=== PATIENT | female | born 1970 | race Caucasian/White ===

== ENCOUNTER 2021-01-01 03:55 | Emergency (ER) | payer BC ==
[~2021-01-01] VITALS: Ht 170.2 cm; Wt 90.9 kg
[~2021-01-01 03:55] MED LIST: CIPROFLOXACN500 MG PO; LOPRESSOR 550 MG/TAB PO; SEPTRA DS1 TAB PO; VITAMIN D5000 UNIT OR
[2021-01-01] MEDS ORDERED: METOPROLOL SUCC50 MG PO (04:25)
[2021-01-01] MEDS ORDERED: BP MED (04:26)
[2021-01-01] MEDS ORDERED: TRAZODONE50 MG PO (04:26)
[2021-01-01 04:41] LABS: HEMATOCRIT 41.4 % (37.0-47.0); HEMOGLOBIN 13.4 g/dl (12.0-16.0); IMMATURE GRANULOCYTES 0.4 % (0.0-5.0); MEAN CELL VOLUME 92.8 fL CALC (80.0-100.0); MEAN CORPUSCULAR HGB CONC 32.4 g/dL CAL (32.0-36.0); NEUT# 5.44 thou/uL (2.00-7.15); RED BLOOD COUNT 4.46 mill/uL (4.20-5.60); RED CELL DISTRI WIDTH 12.9 % (11.5-15.5); URINE BILIRUBIN - DIPSTICK NEGATIVE (NEGATIVE); URINE BLOOD DIPSTICK TRACE-INTACT (NEGATIVE); URINE COLOR YELLOW; URINE GLUCOSE - DIPSTICK NEGATIVE (NEGATIVE); URINE KETONE NEGATIVE (NEGATIVE); URINE LEUK ESTERASE NEGATIVE (NEGATIVE); URINE NITRITE - DIPSTICK NEGATIVE (Negative); URINE PROTEIN - DIPSTICK NEGATIVE (NEG-TRACE); URINE SPECIFIC GRAVITY 1.025; URINE UROBILINOGEN - DIPSTICK 0.2 E.U./dL (0.2)
[2021-01-01 04:56] LABS: ALBUMIN 4.5 g/dL (3.2-5.0); ALKALINE PHOSPHATASE 84 u/l (38-126); AMYLASE 70 u/l (30-110); ANION GAP 11 (6-22 (CALC)); BILIRUBIN, TOTAL 0.5 mg/dL (0.0-1.4); BUN 22 mg/dL (7-17); BUN/CREATININE RATIO 32 (12-20 (CALC)); CARBON DIOXIDE 30 mmol/l (22-30); CHLORIDE 102 mmol/l (95-108); CREATININE 0.7 mg/dL (0.5-1.0); GFR > 60 ML/MIN (>=60 (CALC)); GFR FOR AFR.AMER. > 60 ML/MIN (>=60 (CALC)); LIPASE 110 u/l (23-300); SGOT/AST 34 u/l (14-36); SODIUM 139 mmol/l (137-146); TOTAL PROTEIN 7.7 g/dL (6.3-8.2)
[2021-01-01 05:07] LABS: MYOGLOBIN 18 ng/mL (0 - 62)
[2021-01-01] MEDS ORDERED: PEPCID20 MG PO (07:04)
[2021-01-01 07:11] VITALS: BP 144/84
== END 2021-01-01 07:18 | disposition home or self-care (01) | DRG 392 ==
LOC: ED 03:55
PROVIDERS: Family Medicine
DX: K29.70 Gastritis, unspecified, without bleeding (principal); Z85.3 Personal history of malignant neoplasm of breast

== ENCOUNTER 2022-07-02 12:04 | Emergency (ER) | payer BC ==
[~2022-07-02] VITALS: Ht 167.6 cm; Wt 96.3 kg
[~2022-07-02 12:04] MED LIST changes: +BP MED; +METOPROLOL SUCC50 MG PO; +PEPCID20 MG PO; +TRAZODONE50 MG PO
[2022-07-02 12:31] VITALS: BP 112/75
[2022-07-02] MEDS ORDERED: FLEXERIL5 M1 PO (13:45)
[2022-07-02] MEDS ORDERED: NAPROXEN500 MG PO (13:45)
[2022-07-02 14:18] VITALS: BP 112/75
== END 2022-07-02 14:20 | disposition home or self-care (01) | DRG 563 ==
LOC: ED 12:04
DX: S39.012A Strain of muscle, fascia and tendon of lower back, initial encounter (principal); M51.36 Other intervertebral disc degeneration, lumbar region; M41.9 Scoliosis, unspecified; X50.3XXA Overexertion from repetitive movements, initial encounter; Y93.01 Activity, walking, marching and hiking

== ENCOUNTER 2023-12-10 17:59 | Emergency (ER) | payer BC ==
[~2023-12-10] VITALS: Ht 167.6 cm; Wt 95.2 kg
[2023-12-10] VITALS (8 sets, daily range): BP systolic 116–136; BP diastolic 74–87
[~2023-12-10 17:59] MED LIST changes: +FLEXERIL5 M1 PO; +NAPROXEN500 MG PO
[2023-12-10] MEDS ORDERED: TRAZODONE100 MG PO (19:10)
[2023-12-10] MEDS ORDERED: METFORMIN500 M2 PO (19:10)
[2023-12-10] MEDS ORDERED: ATORVASTATIN CA10 MG PO (19:12)
[2023-12-10] MEDS ORDERED: METOPROLOL100 M1 PO (19:13)
[2023-12-10] MEDS ORDERED: ORPHENADRINE CITRATE 30 MG/ML AMP IM ONE (19:25)
[2023-12-10] MEDS ORDERED: predniSONE 20 MG/TAB PO ONE (19:25)
[2023-12-10] MEDS ORDERED: oxyCODONE 5MG/ ACETAMINOPHEN 325MG TAB PO ONE (19:25)
[2023-12-10] MEDS ORDERED: KETOROLAC TROMETHAMINE 30 MG/ML SDV IM ONE (19:25)
[2023-12-10] MEDS ORDERED: ONDANSETRON 4 MG/TAB ODT SL ONE (19:25)
[2023-12-10] MEDS ORDERED: METHOCARBAMOL 500 MG/TAB PO ONE (22:45)
[2023-12-10] MEDS ORDERED: MELOXICAM7.5 MG PO (22:56)
[2023-12-10] MEDS ORDERED: METHOCARBAMOL500 MG PO (22:56)
[2023-12-10] MEDS ORDERED: MEDROL4 M1 PO (22:56)
== END 2023-12-10 22:56 | disposition home or self-care (01) | DRG 563 ==
LOC: ED 17:59
DX: S39.012A Strain of muscle, fascia and tendon of lower back, initial encounter (principal); I10 Essential (primary) hypertension; E11.9 Type 2 diabetes mellitus without complications; M41.9 Scoliosis, unspecified; X50.0XXA Overexertion from strenuous movement or load, initial encounter; Z79.84 Long term (current) use of oral hypoglycemic drugs